=== PATIENT | male | born 1960 | race Caucasian/White ===

== ENCOUNTER 2020-03-24 09:13 | Outpatient (CLI) | payer BC, SELFPAY ==
--- NOTE | ~2020-03-24 | NM_ITS ---
EXAMINATION: NM bone 3 phase DATE: 03/24/2020 13:27 INDICATION: Lateral right midfoot pain TECHNIQUE: 22.7 mCi Tc-99m HDP by intravenous route. Scintigrams of the bilateral feet were obtained in angiographic, blood pool, and delayed phases. COMPARISON: No other radiographic imaging of the bilateral feet available at this institution for moraima rendon. FINDINGS: There is symmetric normal uptake throughout the bilateral feet on the angiographic phase images. On t he immediate blood pool images there is mild increased uptake in the region of the right first metata rsophalangeal joint and at the lateral midfoot near the expected location of the base of the fifth me tatarsal. There is persistent uptake at these locations on the delayed images as well as mild delayed uptake in the region of the contralateral left first metatarsophalangeal joint as well as at the lef t hindfoot in the region of the anterior calcaneus. IMPRESSION: 1. Foci of delayed uptake at the bilateral first metatarsophalangeal joints, right greater than left , new since the base of the right fifth metatarsal and at the left anterior calcaneus. There is howev er no appreciable increased uptake in these regions on the angiographic phase to suggest significant inflammation a likely either degenerative in etiology or sequela of old trauma. Would recommend obtai ike plain radiographs of the bilateral feet for comparison. Reviewed, dictated and finalized at location [facility]. IMPRESSION: 1. Foci of delayed uptake at the bilateral first metatarsophalangeal joints, r ight greater than left, new since the base of the right fifth metatarsal and at the left anterior calcaneus. There is however no appreciable increased uptake in these regions on the angiographic phase to suggest significant inflammation a likely either degenerative in etiology or sequela of old trauma. Would recomm end obtaining plain radiographs of the bilateral feet for comparison.
== END 2020-03-24 09:14 | disposition home or self-care (01) ==
PROVIDERS: PCP Internal Medicine; Visit Provider Internal Medicine
DX: M79.671 Pain in right foot (principal)
CPT/HCPCS: 78315; A9561

== ENCOUNTER 2020-04-21 13:33 | Outpatient (CLI) | payer BC, SELFPAY ==
--- NOTE | ~2020-04-21 | MR_ITS ---
EXAMINATION: MR foot RT wo con DATE: 04/21/2020 14:45 INDICATION: 3 months of right foot pain TECHNIQUE: Magnetic resonance imaging (MRI) of the right fore/mid foot was performed without intraven ous contrast. Sequences included sagittal T1-weighted FSE, sagittal fluid sensitive FSE STIR, coronal PD-weighted FS FSE, coronal T1-weighted FSE, axial PD-weighted FS FSE, and axial PD-weighted FSE. COMPARISON: Bone scan dated 03/24/2020 FINDINGS: There is marrow and soft tissue edema surrounding a nondisplaced transverse extra-articular fracture at the proximal metadiaphyseal region of the fifth metatarsal (Avila fracture). Severe osteoarthritis at the first metatarsophalangeal joint with subarticular edema, similar degree of cystic change at t he head of the first metatarsal and moderate-sized marginal osteophytes. Moderate osteoarthritis at t he third and fourth tarsal metatarsal joints with additional minimal subarticular edema. Mild osteoar thritis without degenerative subarticular changes at the second tarsal metatarsal joint. Bone marrow signal is otherwise normal throughout the right mid and forefoot. No other fractures identified. Lisf ranc ligament complex appears normal. The visual is portions of the flexor and extensor tendons are n ormal. Mild fatty atrophy of some of the intrinsic musculature in the forefoot. IMPRESSION: 1. Nondisplaced extra articular fracture at the proximal metadiaphyseal region of the fifth metatarsa l (Avila fracture). 2. Polyarticular osteoarthritis, severe at the first metatarsophalangeal joint and mild to moderate a t the tarsal metatarsal joints. Reviewed, dictated and finalized at location A. IMPRESSION: 1. Nondisplaced extra articular fracture at the proximal metadiaphyseal region of the fifth metatarsal (Avila fracture). 2. Polyarticular osteoarthritis, severe at the first metatarsophalangeal joint and mild to moderate at the tarsal metatarsal joints.
== END 2020-04-21 13:34 | disposition home or self-care (01) ==
PROVIDERS: PCP Internal Medicine; Visit Provider Podiatrist Foot & Ankle Surgery
DX: M19.071 Primary osteoarthritis, right ankle and foot (principal)
CPT/HCPCS: 73718

== ENCOUNTER 2021-11-14 14:12 | Outpatient (RCR) | payer BC, SELFPAY ==
[2021-11-14 15:37] VITALS: BP 132/70; PULSE 64; RESP 20; TEMP 36.8; O2SAT 97
[2021-11-14] MEDS: ACETAMINOPHEN 325 MG TABLET 650 MG PO (15:39)
[2021-11-14] MEDS: diphenhydrAMINE HCl CAP 25 MG CAPSULE PO (15:40)
[2021-11-14] MEDS: FAMOTIDINE 20 MG TABLET PO (15:40)
[2021-11-14 16:43] VITALS: BP 131/69
== END 2021-11-14 17:00 ==
LOC: AMCINF 14:12
PROVIDERS: PCP Physician Assistant Medical; Visit Provider Internal Medicine Hematology & Oncology
DX: U07.1 COVID-19 (principal); I10 Essential (primary) hypertension
CPT/HCPCS: A9270; M0243; Q0244

== ENCOUNTER 2024-07-23 04:39 | Day surgery (SDC) | payer BC, SELFPAY ==
[2024-06-29 15:01] VITALS: BMI 49.0
[2024-07-23 09:40] VITALS: BP 152/89; PULSE 65; RESP 18; TEMP 36.1; O2SAT 99
[2024-07-23] MEDS: LACTATED RINGERS 1,000 ML 150 ML IV CONT (09:53)
--- NOTE | 2024-07-23 10:11 | PM.HPGS ---
History of Present Illness History of Present Illness Consent: Risks, benefits, and alternatives have been discussed and questions answered. Patient agrees to proceed with procedure. Chief complaint: colon screen Narrative: Huan Cintron is a 64 year old male here for screening colonoscopy, last one 12 years ago Review of Systems Review of Systems: All systems reviewed & are unremarkable except as noted in HPI and below PMFSH Past Medical History Medical History (Updated 07/23/24 @ 10:11 by Olegario Chavez MD) Acute pain of right knee Acute sinusitis Allergies Anxiety Asthma-COPD overlap syndrome Body mass index (BMI) of 50-59.9 in adult (07/14/18) Chronic neck pain with history of cervical spinal surgery Colon cancer screening Diaphoresis Dyslipidemia Fatigue Gout Hypertension Mass of right forearm Murmur, cardiac SUNIL (obstructive sleep apnea) Pre-diabetes Primary osteoarthritis of right knee Pulmonary hypertension SOB (shortness of breath) Testosterone deficiency Vitamin B12 deficiency Vitamin D deficiency Surgical History Surgical History H/O hernia repair H/O knee surgery History of appendectomy History of tonsillectomy Family History Family History Sibling Patient's brother is in good health Mother Cerebrovascular accident, Onset Age: 78 Hypertension Heart disease Father Malignant neoplasm of prostate Other Family history of arthritis Family history of malignant neoplasm Social History Social History Smoking status: Never smoker Alcohol intake: never Substance use: never Substance use type: does not use Living arrangements: with family Occupation/Education: occupation 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 Spiritual care concerns: No Agree to blood products: Yes Meds Home Medications and Allergies Home Medications Medication Instructions Recorded Confirmed Type cyanocobalamin (vitamin B-12) 500 500 mcg PO DAILY 12/16/19 07/23/24 History mcg tablet safety needles 25 gauge x 1 (BD #100 ea 01/06/23 07/23/24 Rx Eclipse) Ventolin HFA 90 mcg/actuation 2 puff inhalation Q6H PRN 03/01/24 07/23/24 Rx aerosol inhaler (albuterol sulfate) shortness of breath or wheezing #18 grams losartan 50 mg tablet 50 mg PO DAILY #90 tabs 04/05/24 07/23/24 Rx ergocalciferol (vitamin D2) 1,250 50,000 unit PO WEEKLY #12 caps 04/14/24 07/23/24 Rx mcg (50,000 unit) capsule sulfamethoxazole 800 1 tablet PO DAILY #30 tabs 05/24/24 07/23/24 Rx mg-trimethoprim 160 mg tablet (Bactrim DS) allopurinol 300 mg tablet 300 mg PO DAILY #90 tabs 05/28/24 07/23/24 Rx furosemide 20 mg tablet 20 mg PO DAILY #90 tabs 05/31/24 07/23/24 Rx hydralazine 50 mg tablet 50 mg PO BID #180 tabs 06/14/24 07/23/24 Rx clonazepam 0.5 mg tablet 0.5 mg PO DAILY #90 tabs 06/16/24 07/23/24 Rx doxazosin 4 mg tablet 4 mg PO BID #180 tabs 07/12/24 07/23/24 Rx Allergies Allergy/AdvReac Type Severity Reaction Status Date / Time morphine Allergy Mild Itching Verified 07/23/24 09:39 prednisone Allergy Mild Agitated Verified 07/23/24 09:39 Vital Signs Vital Signs - 24 hr 07/23/24 09:40 Temperature 97 F L Pulse Rate 65 Respiratory Rate 18 Blood Pressure 152/89 H Pulse Oximetry 99 Oxygen Delivery Room Air Exam Const: General: comfortable and no acute distress HENMT: Face/Nose/Sinus: Normal nares present Eyes: General: appearance normal, both eyes and all related structures Neck: Neck: no JVD Resp: Auscultation: clear to auscultation bilaterally Cardio: Rate: regular rate Rhythm: regular rhythm GI: Inspection: non-distended GI Palp: Yes Soft to palpation Skin: General skin exam: normal color Neuro: General: gait normal Speech: normal speech Extrem: General:
--- NOTE | 2024-07-23 10:13 | WPDANESEPPF ---
Anes - Initial Pre Proc Eval Procedure: Operation Date: 07/23/24 11:00 Proposed Procedures p Colonoscopy - Olegario Chavez MD Date/Time: 07/23/24 10:13 Surgeon: Olegario Chavez MD Pre Op Diagnosis: colon screen Patient Data Age: 64 Gender: M Height: 1.83 m Weight: 164.5 kg Last Vital Signs Temp 36.1 C L 07/23/24 09:40 Pulse 65 07/23/24 09:40 Resp 18 07/23/24 09:40 BP 152/89 H 07/23/24 09:40 Pulse Ox 99 07/23/24 09:40 O2 Del Method Room Air 07/23/24 09:40 Allergies Allergy/AdvReac Type Severity Reaction Status Date / Time morphine Allergy Mild Itching Verified 07/23/24 09:39 prednisone Allergy Mild Agitated Verified 07/23/24 09:39 Home Medications Medication Instructions Recorded Confirmed Type cyanocobalamin (vitamin B-12) 500 500 mcg PO DAILY 12/16/19 07/23/24 History mcg tablet safety needles 25 gauge x 1 (BD #100 ea 01/06/23 07/23/24 Rx Eclipse) Ventolin HFA 90 mcg/actuation 2 puff inhalation Q6H PRN 03/01/24 07/23/24 Rx aerosol inhaler (albuterol sulfate) shortness of breath or wheezing #18 grams losartan 50 mg tablet 50 mg PO DAILY #90 tabs 04/05/24 07/23/24 Rx ergocalciferol (vitamin D2) 1,250 50,000 unit PO WEEKLY #12 caps 04/14/24 07/23/24 Rx mcg (50,000 unit) capsule sulfamethoxazole 800 1 tablet PO DAILY #30 tabs 05/24/24 07/23/24 Rx mg-trimethoprim 160 mg tablet (Bactrim DS) allopurinol 300 mg tablet 300 mg PO DAILY #90 tabs 05/28/24 07/23/24 Rx furosemide 20 mg tablet 20 mg PO DAILY #90 tabs 05/31/24 07/23/24 Rx hydralazine 50 mg tablet 50 mg PO BID #180 tabs 06/14/24 07/23/24 Rx clonazepam 0.5 mg tablet 0.5 mg PO DAILY #90 tabs 06/16/24 07/23/24 Rx doxazosin 4 mg tablet 4 mg PO BID #180 tabs 07/12/24 07/23/24 Rx Patient hx anesthesia problems: none Family hx anesthesia problems: none Results Review: All pre-operative results and documents have been reviewed as part of the pre-operative evaluation. [facility] Past Medical History Medical History Acute pain of right knee Acute sinusitis Allergies Anxiety Asthma-COPD overlap syndrome Body mass index (BMI) of 50-59.9 in adult (07/14/18) Chronic neck pain with history of cervical spinal surgery Colon cancer screening Diaphoresis Dyslipidemia Fatigue Gout Hypertension Mass of right forearm Murmur, cardiac SUNIL (obstructive sleep apnea) Pre-diabetes Primary osteoarthritis of right knee Pulmonary hypertension SOB (shortness of breath) Testosterone deficiency Vitamin B12 deficiency Vitamin D deficiency Surgical History Surgical History H/O hernia repair H/O knee surgery History of appendectomy History of tonsillectomy Family History Family History Sibling Patient's brother is in good health Mother Cerebrovascular accident, Onset Age: 78 Hypertension Heart disease Father Malignant neoplasm of prostate Other Family history of arthritis Family history of malignant neoplasm Social History Social History Smoking status: Never smoker Alcohol intake: never Substance use: never Substance use type: does not use Living arrangements: with family Occupation/Education: occupation Additional occupation/education comments: pickup driver Spiritual care concerns: No Agree to blood products: Yes Anes - Eval Final PreProcedure Day of Procedure 07/23/24 10:13 Patient weight: overweight Heart: regular rate and rhythm Lungs: clear to auscultation Airway: Mallampati scale class II Neurological: alert and oriented Last oral intake: >/= 8 hours ASA classification: III Emergent: no Anesthetic plan: proceed Anesthesia type and monitoring: general GIVS and standard monitoring Results Review: A
[2024-07-23 10:26] VITALS: BP 113/64; PULSE 60; RESP 18; O2SAT 95
[2024-07-23 10:36] VITALS: BP 106/59; PULSE 63; RESP 18; O2SAT 94
[2024-07-23 10:46] VITALS: BP 116/62; PULSE 63; RESP 18; O2SAT 96
== END 2024-07-23 11:01 | disposition home or self-care (01) ==
PROVIDERS: PCP Physician Assistant Medical; Visit Provider Internal Medicine Gastroenterology
PROC: 0DJD8ZZ Inspection of Lower Intestinal Tract, Via Natural or Artificial Opening Endoscopic (ICD-10-PCS; CPT 45378; principal; 2024-07-23 11:00)
DX: Z12.11 Encounter for screening for malignant neoplasm of colon (principal); D12.3 Benign neoplasm of transverse colon; K64.8 Other hemorrhoids; I10 Essential (primary) hypertension; G47.33 Obstructive sleep apnea (adult) (pediatric); R73.03 Prediabetes; F41.9 Anxiety disorder, unspecified; J45.909 Unspecified asthma, uncomplicated; M17.11 Unilateral primary osteoarthritis, right knee; E55.9 Vitamin D deficiency, unspecified; E53.8 Deficiency of other specified B group vitamins; G89.29 Other chronic pain; M54.2 Cervicalgia; R01.1 Cardiac murmur, unspecified; I27.20 Pulmonary hypertension, unspecified; E29.1 Testicular hypofunction; Z79.51 Long term (current) use of inhaled steroids; Z98.890 Other specified postprocedural states; Z80.42 Family history of malignant neoplasm of prostate; Z82.49 Family history of ischemic heart disease and other diseases of the circulatory system
CPT/HCPCS: 45385; 88305; J2704; J7120

== ENCOUNTER 2024-07-23 14:19 | Outpatient (CLI) | payer BC, SELFPAY ==
--- NOTE | 2024-07-23 14:43 | ECHO_ITS ---
Patient Info Name: Huan Cintron Age: 64 years : 1960 Gender: Male Ht: 72 in Wt: 365 lbs BSA: 2.99 m2 HR: 63 bpm BP: 130 / 74 mmHg Heart Rhythm: Sinus Rhythm Technical Quality: Fair Exam Date: 07/23/2024 2:55 PM Exam Location: Echo Lab Patient Status: Outpatient Admit Date: 07/23/2024 Staff Ordering Physician: Jennifer Vitale PA-C Associate Professor Of Geology: Nati Barros RDCS Attending Provider: Jennifer Vitale PA-C Referring Physician: Winifred GUAN; Exam Type: CA echo doppler color flow Study Info Indications R01.1 - Cardiac murmur, unspecified Complete two-dimensional, color flow and Doppler transthoracic echocardiogram is performed. Summary 1. Complete two-dimensional, color flow and Doppler transthoracic echocardiogram is performed. 2. Left ventricular chamber dimension is normal. 3. Left ventricular systolic function is normal, estimated at 60-65%. 4. The left ventricular diastolic function is abnormal. 5. E/e' 11 is mildly elevated. 6. Left atrial chamber dimension is mildly enlarged. 7. There is mild aortic valve sclerosis. 8. There is trace tricuspid valve regurgitation. 9. No pulmonary hypertension, estimated pulmonary arterial systolic pressure is 25 mmHg. Left Ventricle E/e' 11 is mildly elevated. Left ventricular chamber dimension is normal. Left ventricular systolic function is normal, estimated at 60-65%. The left ventricular diastolic function is abnormal. Right Ventricle Right ventricular systolic function is normal and with normal TAPSE 2.6 cm. Right ventricular chamber dimension is normal. Left Atria Left atrial chamber dimension is mildly enlarged. Right Atria Right atrial chamber dimension is normal. Aortic Valve The aortic valve is trileaflet. There is mild aortic valve sclerosis. There is no aortic valve stenosis. There is no aortic valve regurgitation. Pulmonic Valve There is no pulmonic regurgitation. Mitral Valve There is no mitral valve stenosis. There is no mitral valve regurgitation. Tricuspid Valve No pulmonary hypertension, estimated pulmonary arterial systolic pressure is 25 mmHg. There is trace tricuspid valve regurgitation. Pericardium/Pleural There is no pericardial effusion. Inferior Vena Cava Normal inferior vena cava with >50% collapse upon inspiration consistent with normal right atrial pressure, 5 mmHg. Aorta The aortic root size at the sinus of Valsalva is normal. Left Ventricular Outflow Tract Name Value Normal LVOT 2D LVOT Diameter 2.0 cm LVOT Doppler LVOT Peak Gradient 5 mmHg LVOT Mean Gradient 3 mmHg LVOT VTI 22 cm LVOT VTI/AV VTI Ratio 0.6 LVOT Stroke Volume 71 ml LVOT CO 4.6 l/min LVOT CI 1.5 l/min/m2 Pulmonic Valve Name Value Normal RVOT Doppler
== END 2024-07-23 14:20 | disposition home or self-care (01) ==
PROVIDERS: PCP Physician Assistant Medical; Visit Provider Physician Assistant Medical
DX: R01.1 Cardiac murmur, unspecified (principal); I27.20 Pulmonary hypertension, unspecified
CPT/HCPCS: 93306